=== PATIENT | female | born 1955 | race Caucasian/White ===

== ENCOUNTER 2024-01-04 06:58 | Outpatient (CLI) | payer OTHER, SELFPAY ==
--- NOTE | ~2024-01-04 | MR_ITS ---
Procedure: MRI thoracic spine without contrast Ordering provider: Scotty Schulz MD History: . Other low back pain . Comparison: None. Technique: MRI lumbar spine without contrast. FINDINGS: SPINAL CORD: Normal. The conus ends at the level of L1. VERTEBRAL BODIES: Normal height and alignment. No compression fracture. Normal marrow signal. Minimal anterolisthesis at the level of L4-L5. DISK SPACES: Normal. Thickening of the ligamenta flava at the level of L1-L2. STENOSIS: Mild spinal canal stenosis at the level of L2-L3. Thickening of the ligamenta flava and fac et joint disease. Moderate spinal canal stenosis at the level of L3-L4 with facet joint disease. moderate spinal canal stenosis at the level of L4-L5 with diffuse disc bulge and left nerve root comp ression PARASPINOUS SOFT TISSUES: Normal. IMPRESSION: No compression fracture. Multilevel degenerative disc disease with variable degrees of spinal canal s tenosis and intervertebral foraminal narrowing. Reviewed, dictated and finalized at location A. IMPRESSION: No compression fracture. Multilevel degenerative disc disease with variable deg emelina of spinal canal stenosis and intervertebral foraminal narrowing.
== END 2024-01-04 06:59 ==
LOC: MICIMG 07:03
PROVIDERS: Visit Provider Orthopaedic Surgery
DX: M48.061 Spinal stenosis, lumbar region without neurogenic claudication (principal); M51.36 Other intervertebral disc degeneration, lumbar region
CPT/HCPCS: 72148